=== PATIENT | male | born 1980 | race Two or more races ===

== ENCOUNTER 2018-07-14 11:52 | Emergency (ER) | payer OTHER ==
[~2018-07-14] VITALS: Ht 167.6 cm; Wt 78.0 kg
[2018-07-14] MEDS ORDERED: MORPHINE SULFATE 4 MG/ML, 1ML IVPush PRN (13:00)
[2018-07-14 13:02] LABS: MEAN CORPUSCULAR HGB CONC 34.3 g/dL (33.2-36.2); MEAN CORPUSCULAR VOLUME 87.6 fL (81-97); MEAN PLATELET VOLUME 8.3 fL (7.4-10.4); PLATELET COUNT 223 x10^3/uL (130-400); RED BLOOD COUNT 5.32 x10^6/uL (4.38-5.82); RED CELL DISTRIBUTION WIDTH 12.9 % (9.4-14.8)
[2018-07-14 13:06] LABS: INTERNATIONAL NORMALIZED RATIO 1.11 (0.93-1.1); PROTHROMBIN TIME 11.6 Seconds (9.6-11.5)
[2018-07-14 13:09] LABS: ALANINE AMINOTRANSFERASE 23 U/L (12-78); ALBUMIN 4.5 g/dL (3.4-5.0); ANION GAP 6 mmol/L (5-15); CALCIUM 9.3 mg/dL (8.5-10.1); CHLORIDE 109 mmol/L (98-107); CREATININE 0.98 mg/dL (0.7-1.3)
[2018-07-14 13:13] LABS: ALKALINE PHOSPHATASE 68 U/L (45-117); BILIRUBIN,TOTAL 0.5 mg/dL (0.2-1.0); TOTAL PROTEIN 7.9 g/dL (6.4-8.2); TROPONIN I < 0.015 ng/mL (0.000-0.045)
--- NOTE | 2018-07-14 13:17 | NUR ---
BS REPORT FROM VITALY [facility]. PT RESTING COMFORTABLY, NO VISIBLE DISTRESS. PT STATES PAIN DECREASED FROM 10/10 TO 8/10 AT THIS TIME. PT UPDATED ON POC, PT WISHES TO HOLD ON MORPHINE AT THIS TIME. URINE COLLECTED/SENT TO LAB. CALL LIGHT WITHIN REACH, FAMILY AT BS.
[2018-07-14 13:22] LABS: MICROSCOPIC AUTO
[2018-07-14 13:33] LABS: CULTURE INDICATED? YES
[2018-07-14 13:37] LABS: BASOPHILS # (AUTO) 0.07 x10^3/uL (0-0.1); BASOPHILS % (AUTO) 1 % (0-1); EOSINOPHILS # (AUTO) 0.11 x10^3/uL (0-0.4); EOSINOPHILS % (AUTO) 1 % (1-7); LYMPHOCYTES # (AUTO) 1.55 x10^3/uL (1-3.4); LYMPHOCYTES % (AUTO) 21 % (22-44); MD SCAN; MONOCYTES # (AUTO) 0.45 x10^3/uL (0.2-0.8); MONOCYTES % (AUTO) 6 % (2-9); NEUTROPHILS # (AUTO) 5.15 x10^3/uL (1.8-6.8); NEUTROPHILS % (AUTO) 70 % (42-75)
--- NOTE | 2018-07-14 13:41 | NUR ---
ALL RESULTS BACK, PT FOR RECHECK.
[2018-07-14] MEDS ORDERED: MAALOX/HYOSCYAMINE/LIDOCAINE 45 ML BTL ONE (13:51)
[2018-07-14] MEDS ORDERED: MAALOX/HYOSCYAMINE/LIDOCAINE 45 ML BTL PO ONE (14:00)
[2018-07-14] MEDS ORDERED: ONDANSETRON 2MG/ML, 2ML IVPush ONE (14:00)
[2018-07-14] MEDS ORDERED: SODIUM CHLORIDE FLUSH 10ML SYR IVF ONE (14:00)
[2018-07-14 14:20] VITALS: BP 112/62
== END 2018-07-14 14:22 | disposition home or self-care (01) ==
LOC: ED 13:36
DX: R07.2 Precordial pain (principal); R10.13 Epigastric pain
CPT/HCPCS: 36415; 71045; 80053; 81001; 83690; 83880; 84484; 85025; 85610; 87086; 93005; 99284

== ENCOUNTER 2018-07-17 09:50 | Emergency (ER) | payer OTHER ==
[~2018-07-17] VITALS: Ht 167.6 cm; Wt 77.4 kg
--- NOTE | 2018-07-17 10:25 | NUR ---
Pt to room from lobby. Pt c/o sharp midline CP on , states was seen here at that time and is still having pain. Pt placed in gown, positioned for comfort in bed. Continuous heart, oxygen and BP monitors applied, all safety measures observed.
[2018-07-17 10:29] VITALS: BP 132/83
--- NOTE | 2018-07-17 10:34 | NUR ---
Dr. David at bedside to evaluate pt.
[2018-07-17] MEDS ORDERED: ASPIRIN 81 MG TABLET CHEW ONE (10:46)
[2018-07-17] MEDS ORDERED: MAALOX/HYOSCYAMINE/LIDOCAINE 45 ML BTL ONE (10:47)
[2018-07-17] MEDS ORDERED: MAALOX/HYOSCYAMINE/LIDOCAINE 45 ML BTL PO ONE (11:00)
[2018-07-17] MEDS ORDERED: ASPIRIN 81 MG TABLET CHEW PO ONE (11:00)
[2018-07-17 11:08] LABS: ALANINE AMINOTRANSFERASE 24 U/L (12-78); ALBUMIN 4.2 g/dL (3.4-5.0); ANION GAP 5 mmol/L (5-15); CHLORIDE 109 mmol/L (98-107); CREATININE 1.13 mg/dL (0.7-1.3)
[2018-07-17 11:13] LABS: ALKALINE PHOSPHATASE 59 U/L (45-117); BILIRUBIN,TOTAL 0.3 mg/dL (0.2-1.0); TOTAL PROTEIN 7.8 g/dL (6.4-8.2); TROPONIN I < 0.015 ng/mL (0.000-0.045)
[2018-07-17 11:16] LABS: BASOPHILS # (AUTO) 0.02 x10^3/uL (0-0.1); BASOPHILS % (AUTO) 0 % (0-1); EOSINOPHILS # (AUTO) 0.08 x10^3/uL (0-0.4); EOSINOPHILS % (AUTO) 2 % (1-7); LYMPHOCYTES # (AUTO) 0.97 x10^3/uL (1-3.4); LYMPHOCYTES % (AUTO) 18 % (22-44); MD NO; MEAN CORPUSCULAR HEMOGLOBIN 29.7 pg (27.5-34.5); MEAN CORPUSCULAR VOLUME 87.2 fL (81-97); MEAN PLATELET VOLUME 8.4 fL (7.4-10.4); MONOCYTES # (AUTO) 0.33 x10^3/uL (0.2-0.8); MONOCYTES % (AUTO) 6 % (2-9); NEUTROPHILS # (AUTO) 4.17 x10^3/uL (1.8-6.8); NEUTROPHILS % (AUTO) 75 % (42-75); PLATELET COUNT 201 x10^3/uL (130-400); RED BLOOD COUNT 5.32 x10^6/uL (4.38-5.82); RED CELL DISTRIBUTION WIDTH 12.9 % (9.4-14.8)
--- NOTE | 2018-07-17 12:06 | NUR ---
TASK RN: Patient/Caregiver given discharge instructions and they have confirmed that they understand the instructions. Patient ambulatory with steady gait.
== END 2018-07-17 12:06 | disposition home or self-care (01) ==
LOC: ED 11:16
DX: K25.3 Acute gastric ulcer without hemorrhage or perforation (principal); K21.9 Gastro-esophageal reflux disease without esophagitis
CPT/HCPCS: 36415; 71045; 80053; 83690; 84484; 85025; 86677; 93005; 99284

== ENCOUNTER 2018-11-02 14:48 | Outpatient (CLI) | payer OTHER | END 2018-11-02 23:59 | disposition home or self-care (01) | LOC: CFH 14:48 | PROVIDERS: ATTEND Internal Medicine Cardiovascular Disease | DX: R94.31 Abnormal electrocardiogram [ECG] [EKG] (principal) | CPT/HCPCS: 93306 ==

== ENCOUNTER 2019-05-03 09:57 | Emergency (ER) | payer OTHER ==
[~2019-05-03] VITALS: Ht 167.6 cm; Wt 98.1 kg
[2019-05-03] MEDS ORDERED: SODIUM CHLORIDE 0.9% 1,000 ML IV ONE (10:25)
[2019-05-03] MEDS ORDERED: ONDANSETRON 2MG/ML, 2ML IVPush ONE (10:30)
[2019-05-03] MEDS ORDERED: SODIUM CHLORIDE FLUSH 10ML SYR IVF ONE (10:30)
[2019-05-03] MEDS ORDERED: MORPHINE SULFATE 4 MG/ML, 1ML IVPush PRN (10:30)
[2019-05-03] MEDS ORDERED: ONDANSETRON 2MG/ML, 2ML ONE (10:45)
[2019-05-03] MEDS ORDERED: MORPHINE SULFATE 4 MG/ML, 1ML ONE (10:45)
[2019-05-03 10:49] LABS: BASOPHILS % (AUTO) 0 % (0-1); EOSINOPHILS % (AUTO) 0 % (1-7); LYMPHOCYTES # (AUTO) 0.49 x10^3/uL (1-3.4); LYMPHOCYTES % (AUTO) 6 % (22-44); MD NO; MEAN CORPUSCULAR HEMOGLOBIN 30.3 pg (27.5-34.5); MEAN CORPUSCULAR HGB CONC 34.4 g/dL (33.2-36.2); MEAN CORPUSCULAR VOLUME 88.2 fL (81-97); MEAN PLATELET VOLUME 7.9 fL (7.4-10.4); MONOCYTES # (AUTO) 0.33 x10^3/uL (0.2-0.8); MONOCYTES % (AUTO) 4 % (2-9); NEUTROPHILS # (AUTO) 8.08 x10^3/uL (1.8-6.8); NEUTROPHILS % (AUTO) 91 % (42-75); PLATELET COUNT 213 x10^3/uL (130-400); RED BLOOD COUNT 5.24 x10^6/uL (4.38-5.82); RED CELL DISTRIBUTION WIDTH 12.8 % (9.4-14.8)
--- NOTE | 2019-05-03 10:55 | NUR ---
US AT BEDSIDE
[2019-05-03 11:05] LABS: ALANINE AMINOTRANSFERASE 24 U/L (12-78); ALBUMIN 4.1 g/dL (3.4-5.0); ANION GAP 6 mmol/L (5-15); CHLORIDE 108 mmol/L (98-107); CREATININE 1.12 mg/dL (0.7-1.3)
[2019-05-03 11:06] LABS: ALKALINE PHOSPHATASE 55 U/L (45-117); BILIRUBIN,TOTAL 0.6 mg/dL (0.2-1.0)
--- NOTE | 2019-05-03 11:23 | NUR ---
IV STARTED. PT MEDICATED WITH ORDERED PAIN MEDS. ORDERED FLUIDS INFUSING AT THIS TIME. PT GIVEN URINAL AT BEDSIDE TO PROVIDE URINE SAMPLE ALONG WITH INSTRUCTION FOR CLEAN CATCH. BILAT BEDRAILS UP, CALL LIGHT AND FAMILY AT BEDSIDE.
--- NOTE | 2019-05-03 11:56 | NUR ---
PT ABLE TO PROVIDE URINE SAMPLE, WALKED TO LAB. PT TO CT AT THIS TIME.
[2019-05-03] MEDS ORDERED: OMNIPAQUE 350 MG/ML, 100ML BOTTLE ONE (12:08)
[2019-05-03 12:09] LABS: MICROSCOPIC NOT IND
[2019-05-03 12:11] LABS: CULTURE INDICATED? NO
--- NOTE | 2019-05-03 13:29 | NUR ---
RECEIVED REPORT FROM ELVA. ASSUMED CARE
[2019-05-03 13:39] VITALS: BP 111/65
== END 2019-05-03 13:50 | disposition home or self-care (01) ==
LOC: ED 11:46
DX: K80.20 Calculus of gallbladder without cholecystitis without obstruction (principal)
CPT/HCPCS: 36415; 74177; 76700; 80053; 81003; 83690; 85025; 93005; 96374; 96375; 99284; J2270; J2405; J7030; Q9967

== ENCOUNTER 2019-05-08 02:10 | Day surgery (SDC) | payer OTHER ==
[~2019-05-08] VITALS: Ht 170.2 cm; Wt 77.2 kg
[2019-05-08 02:12] VITALS: BP 116/80
--- NOTE | 2019-05-08 02:25 | NUR ---
RN to bedside, patient and spouse at bedside. Patient reports abdominal pain with a known source from a visit wednesday. Diagnosed with gallstones (2cm) per patient's report. Patient has a scheduled surgery 0730am. Patient reports pain has brought him in. Awaiting assessment by provider.
--- NOTE | 2019-05-08 02:48 | NUR ---
Note undone in EDM - 05/08/19 at 0258 by GIOVANA Blood cultures completed, pink and white armband in place. Patient informed of need for urine culture. RN returned iv antibiotics hung. Educated on need for clean catch urine or straight cath. Spouse at bedside attempted to clean catch using urinal and following with sample cup but patient was unable to. Patient agreeable to straight catheterization. Patient straight catheterized per protocol. Physician at bedside. Reviewed orders. Urine collected and hand carried to laboratory. Confirmed two liters of iv fluids to be hung. Patient sleeping soundly. Awaiting assessment after fluids
[2019-05-08] MEDS ORDERED: SODIUM CHLORIDE 0.9% 1,000ML IVBOLUS ONE (03:00)
[2019-05-08] MEDS ORDERED: ONDANSETRON 2MG/ML, 2ML IVPush ONE (03:00)
[2019-05-08] MEDS ORDERED: MORPHINE SULFATE 4 MG/ML, 1ML IVPush PRN (03:00)
--- NOTE | 2019-05-08 03:00 | NUR ---
New orders placed by provider. foundry technician already to bedside. Patient out of room. Awaiting for return to administer medications.
[2019-05-08 03:15] LABS: BASOPHILS # (AUTO) 0.04 x10^3/uL (0-0.1); BASOPHILS % (AUTO) 1 % (0-1); EOSINOPHILS # (AUTO) 0.16 x10^3/uL (0-0.4); EOSINOPHILS % (AUTO) 2 % (1-7); LYMPHOCYTES # (AUTO) 1.52 x10^3/uL (1-3.4); LYMPHOCYTES % (AUTO) 22 % (22-44); MD NO; MEAN CORPUSCULAR HEMOGLOBIN 29.9 pg (27.5-34.5); MEAN CORPUSCULAR HGB CONC 33.7 g/dL (33.2-36.2); MEAN CORPUSCULAR VOLUME 88.8 fL (81-97); MEAN PLATELET VOLUME 7.7 fL (7.4-10.4); MONOCYTES % (AUTO) 7 % (2-9); NEUTROPHILS # (AUTO) 4.67 x10^3/uL (1.8-6.8); NEUTROPHILS % (AUTO) 68 % (42-75); PLATELET COUNT 211 x10^3/uL (130-400); RED BLOOD COUNT 5.06 x10^6/uL (4.38-5.82); RED CELL DISTRIBUTION WIDTH 13.1 % (9.4-14.8)
[2019-05-08 03:23] LABS: ALANINE AMINOTRANSFERASE 16 U/L (12-78); ALBUMIN 3.9 g/dL (3.4-5.0); ANION GAP 5 mmol/L (5-15); CHLORIDE 107 mmol/L (98-107); CREATININE 1.09 mg/dL (0.7-1.3)
[2019-05-08] MEDS ORDERED: ONDANSETRON 2MG/ML, 2ML ONE ×2 (03:24→06:23)
[2019-05-08 03:25] LABS: ALKALINE PHOSPHATASE 52 U/L (45-117); BILIRUBIN,TOTAL 0.4 mg/dL (0.2-1.0); TOTAL PROTEIN 7.7 g/dL (6.4-8.2)
[2019-05-08] MEDS ORDERED: MORPHINE SULFATE 4 MG/ML, 1ML ONE (03:25)
--- NOTE | 2019-05-08 04:53 | NUR ---
Patient seen by surgical provider. Awaiting orders.
--- NOTE | 2019-05-08 05:09 | NUR ---
Operating room staff to bedside, reviewed that patient had been given instructions to empty bladder. Patient just returned to room. Required reiteration to remove underwear. RN for transport to preop aware patient still needs to remove underwear. Also handed off consent. Patient transported.
[2019-05-08] MEDS ORDERED: BUPIVACAINE/PF 0.5% ONE (05:12)
[2019-05-08] MEDS ORDERED: FENTANYL PF 250 MCG/5ML ONE (05:37)
[2019-05-08] MEDS ORDERED: BUPIVACAINE/PF-EPI 0.5% 1:200K INFIL ONE (06:05)
[2019-05-08] MEDS ORDERED: GLYCOPYRROLATE 0.2MG/1ML, 5ML ONE (06:23)
[2019-05-08] MEDS ORDERED: NEOSTIGMINE 1 MG/ML, 10ML ONE (06:23)
[2019-05-08] MEDS ORDERED: PROPOFOL 10 MG/ML, 20ML ONE (06:23)
[2019-05-08] MEDS ORDERED: CEFOTETAN PMX 2GM/50ML 50 ML ONE (06:23)
[2019-05-08] MEDS ORDERED: ROCURONIUM 10MG/ML,5ML ONE (06:23)
[2019-05-08] MEDS ORDERED: DEXAMETHASONE 4 MG/ML, 1ML ONE (06:23)
[2019-05-08] MEDS ORDERED: SUGAMMADEX 200 MG/2 ML IVPush ONE (06:24)
[2019-05-08] MEDS ORDERED: LACTATED RINGERS 1,000 ML IV SCH (06:46)
[2019-05-08] MEDS ORDERED: MIDAZOLAM 1 MG/ML, 2ML ONE (06:48)
[2019-05-08] MEDS ORDERED: PROMETHAZINE 25 MG/ML, 1ML IM PRN (07:00)
[2019-05-08] MEDS ORDERED: ONDANSETRON 2MG/ML, 2ML IVPush PRN (07:00)
[2019-05-08] MEDS ORDERED: morphine SULFATE 10 MG/ML, 1ML IVPush PRN (07:00)
[2019-05-08] MEDS ORDERED: FENTANYL PF 100 MCG/2ML ONE (07:26)
[2019-05-08] MEDS ORDERED: OXYcodone 5 MG/5 ML ORAL.SOL UDC ONE ×2 (07:27→09:48)
[2019-05-08] MEDS: OXYcodone 5 MG/5 ML ORAL.SOL UDC PO PRN ×2 (07:30→09:49)
[2019-05-08] MEDS ORDERED: PROMETHAZINE 25 MG/ML, 1ML IV PRN (07:30)
[2019-05-08] MEDS: FENTANYL PF 100 MCG/2ML IV PRN ×3 (07:30→07:46)
[2019-05-08] MEDS ORDERED: MEPERIDINE/PF 25MG/ML,1ML IVPush PRN (07:30)
[2019-05-08] MEDS ORDERED: ONDANSETRON 2MG/ML, 2ML IV PRN (07:30)
[2019-05-08] MEDS ORDERED: MIDAZOLAM 1 MG/ML, 2ML IVPush ONE (07:30)
== END 2019-05-08 10:10 | disposition home or self-care (01) ==
LOC: ED 04:39 → UNDOADMIN 04:49 → OUT 04:49 → EDIP 04:49 → OUT 10:10 → UNDODISIN 10:10 → EDSTATUS 22:11
PROVIDERS: ATTEND Surgery
DX: K80.63 Calculus of gallbladder and bile duct with acute cholecystitis with obstruction (principal); K21.9 Gastro-esophageal reflux disease without esophagitis; Z79.891 Long term (current) use of opiate analgesic; Z79.899 Other long term (current) drug therapy
CPT/HCPCS: 36415; 47562; 76700; 80053; 83690; 85025; 88304; J1100; J2250; J2405; J2704; J2710; J3010; J3490